=== PATIENT | female | born 2000 | race Caucasian/White ===

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

== ENCOUNTER 2018-01-08 11:30 | Emergency (ER) | payer BC ==
[2018-01-08 12:25] VITALS: BP 112/60
--- NOTE | 2018-01-08 12:34 | UC ---
Throat Pain/Nasal Glen HPI - HPI Summary HPI Summary: sore throat, chilss and fever for 1 day - History of Current Complaint Hx Obtained From: Patient Hx Last Menstrual Period: 12/13/17 ?: No Onset/Duration: Sudden Onset, Lasting Days Severity: Moderate Pain Intensity: 8 Associated Signs & Symptoms: Positive: Dysphagia, Hoarseness, Fever <Piedad Ramirez - Last Filed: 01/08/18 13:15> <Josefina Aguiar - Last Filed: 01/08/18 13:53> - History of Current Complaint Chief Complaint: UCRespiratory Stated Complaint: SWOLLEN THROAT/ST/VOMITING Time Seen by Provider: 01/08/18 12:33 - Allergies/Home Medications Allergies/Adverse Reactions: Allergies Allergy/AdvReac Type Severity Reaction Status Date / Time No Known Allergies Allergy Verified 07/27/17 18:37 PMH/Surg Hx/FS Hx/Imm Hx Previously Healthy: Yes - Surgical History Surgical History: None - Family History Known Family History: Positive: Hypertension - Social History Alcohol Use: Occasionally Substance Use Type: None Smoking Status (MU): Never Smoked Tobacco <Piedad Ramirez - Last Filed: 01/08/18 13:15> Review of Systems Constitutional: Fever, Chills, Fatigue Skin: Negative Eyes: Negative ENT: Sore Throat, Ear Ache Respiratory: Cough Cardiovascular: Negative Gastrointestinal: Negative Genitourinary: Negative Motor: Negative Neurovascular: Negative Musculoskeletal: Negative Neurological: Negative Psychological: Negative Is Patient Immunocompromised?: No All Other Systems Reviewed And Are Negative: Yes <Piedad Ramirez - Last Filed: 01/08/18 13:15> Physical Exam Triage Information Reviewed: Yes Appearance: Well-Nourished, Ill-Appearing, Pain Distress Vital Signs: Initial Vital Signs Temp 100.4 F 01/08/18 12:15 Pulse 102 01/08/18 12:15 Resp 18 01/08/18 12:15 BP 112/60 01/08/18 12:15 Pulse Ox 98 01/08/18 12:15 Vital Signs Reviewed: Yes Eye Exam: Normal ENT: Positive: Pharyngeal erythema, TMs normal, Tonsillar swelling - left tonsil abcess noted, Tonsillar exudate - lef tside Dental Exam: Normal Neck exam: Normal Neck: Positive: Supple, Nontender, Enlarged Nodes @ - left cervical Respiratory Exam: Normal Respiratory: Positive: Chest non-tender, Lungs clear, Normal breath sounds Cardiovascular Exam: Normal Cardiovascular: Positive: No Murmur, Pulses Normal, Tachycardia Abdominal Exam: Normal Abdomen Description: Positive: Nontender, No Organomegaly, Soft Bowel Sounds: Positive: Present Musculoskeletal Exam: Normal Neurological Exam: Normal Psychological Exam: Normal Skin Exam: Normal <Piedad Ramirez - Last Filed: 01/08/18 13:15> Vital Signs: Initial Vital Signs Temp 100.4 F 01/08/18 12:15 Pulse 102 01/08/18 12:15 Resp 18 01/08/18 12:15 BP 112/60 01/08/18 12:15 Pulse Ox 98 01/08/18 12:15 <Josefina Aguiar - Last Filed: 01/08/18 13:53> Throat Pain/Nasal Course/Dx - Course Course Of Treatment: hx obtained, exam performed ,meds reviewed, rapid strep obtained and was invalid, peritonsillar abcess treated with augmentin and steroids, appointment obtained for Dr ruiz, patient preference. advised to report to ER if she devlopes any shortness of breath. - Differential Dx/Diagnosis Differential Diagnosis/HQI/PQRI: Influenza, Laryngitis, Otitis Media, Pharyngitis, URI Provider Diagnoses: peritonsillar abcess, left <Piedad Ramirez - Last Filed: 01/08/18 13:15> Discharge - Sign-Out/Discharge Documenting (check all that apply): Discharge - Billing Disposition and Condition Condition: STABLE Disposition: HOME <Piedad Ramirez - Last Filed: 01/08/18 13:15> - Billing Disposition and Condition Condition: STABLE Disposition: HOME <Josefina Aguiar - Last Filed: 01/08/18 13:53> - Discharge Plan Condition: Stable Disposition: HOME Prescriptions: Amoxicillin/Clavulanate TAB* [Augmentin TAB 875*] 875 mg PO BID #20 tab Ondansetron ODT TAB* [Zofran 4 MG Odt TAB*] 4 mg PO Q8H PRN #12 tab.odt PRN Reason: Nausea predniSONE TAB* [Deltasone TAB*] 40 mg PO DAILY #14 tab Patient Education Materials: Peritonsillar Abscess (ED) Forms: *Work Release Referrals: Siddharth Ruiz MD [Medical Doctor] - No Primary Care Phys,NOPCP [Primary Care Provider] - Additional Instructions: 1. take the medication as prescribed. 2. Salt water gargles multiple times a day 3. if you develop any shortness of breath, wheezing, or other respiratory difficulty please reprot right to ER. I consulted with Dr Ruiz, ENT, he is aware of your conditions, current treatment and you have an appointment scheduled at 4:00 at his office. Attestation Statement User Type: Provider - I was available for consult. This patient was seen by the [facility]. The patient was not presented to, seen by, or examined by me. -Isabel <Josefina Aguiar - Last Filed: 01/08/18 13:53>
[2018-01-08] MEDS ORDERED: Amoxicillin/Clavulanate TAB* 875 MG PO ONE (12:52)
[2018-01-08] MEDS ORDERED: predniSONE TAB* 20 MG PO ONE (12:53)
[2018-01-08] MEDS ORDERED: Ondansetron ODT TAB* 4 MG PO ONE (13:02)
== END 2018-01-08 13:33 | disposition home or self-care (01) ==
LOC: UCCORT 11:30
DX: J36 Peritonsillar abscess (principal)
CPT/HCPCS: 99212; A9270-GY; G0463; J7512

== ENCOUNTER 2019-10-18 17:45 | Emergency (ER) | payer BC ==
[2019-10-18 18:37] VITALS: BP 106/72
--- NOTE | 2019-10-18 18:38 | UC ---
Throat Pain/Nasal [place] HPI - HPI Summary HPI Summary: Patient is a 19-year-old female presenting with nasal congestion and cough 2 weeks. Patient states nasal congestion is worsening. Notes the past 2 days she has had left ear pain and developed muffled hearing. Denies drainage from the ear. Denies shortness of breath and wheezing. Denies nausea and vomiting. Denies fever and chills. Notes normal appetite. Taking Sudafed and DayQuil without much relief. - History of Current Complaint Chief Complaint: UCGeneralIllness Stated Complaint: CONGESTION/COUGH/ LEFT EAR PLUGGED Hx Last Menstrual Period: 12/13/17 Pain Intensity: 0 - Allergies/Home Medications Allergies/Adverse Reactions: Allergies Allergy/AdvReac Type Severity Reaction Status Date / Time No Known Allergies Allergy Verified 10/18/19 18:36 PMH/Surg Hx/FS Hx/Imm Hx - Surgical History Surgical History: Yes Surgery Procedure, Year, and Place: -2016 - Family History Known Family History: Positive: Hypertension - Social History Alcohol Use: Weekly Substance Use Type: None Smoking Status (MU): Never Smoked Tobacco Review of Systems All Other Systems Reviewed And Are Negative: Yes Constitutional: Positive: Negative ENT: Positive: Ear Ache - left, Sinus Congestion Respiratory: Positive: Cough. Negative: Shortness Of Breath Cardiovascular: Positive: Negative Gastrointestinal: Positive: Negative Musculoskeletal: Positive: Negative. Negative: Myalgia Neurological: Negative: Headache Physical Exam - Summary Physical Exam Summary: Vital Signs Reviewed: Yes A+Ox3, no distress, well-appearing Eyes: Conjunctiva Clear ENT: Hearing grossly normal, +nasal congestion, +maxillary sinus tenderness, + erythema and bulging of left TM, uvula midline, no exudate, no erythema Neck: Positive: Supple Respiratory: Positive: No respiratory distress, No accessory muscle use + CTA throughout no w/r Cardiovascular: RRR nl s1, s2 no m/r Musculoskeletal Exam: VILLASEÑOR x 4 without difficulty Neurological: Positive: Alert Psychological: Positive: age appropriate behavior Skin: Positive: no rash, no ecchymosis Vital Signs: Initial Vital Signs Temp 98.5 F 10/18/19 18:31 Pulse 67 10/18/19 18:31 Resp 18 10/18/19 18:31 BP 106/72 10/18/19 18:31 Pulse Ox 98 10/18/19 18:31 Throat Pain/Nasal Course/Dx - Course Course Of Treatment: Discussed AOM and sinusitis with patient. Also discussed acute bronchitis. Treated patient with augmentin and instructed to continue with symptomatic relief. Instructed to follow up with pcp or [facility] if symptoms persist or worsen. Patient voiced understanding and agreed with treatment plan. - Differential Dx/Diagnosis Provider Diagnosis: Acute otitis media with effusion of left ear, Sinusitis, Acute bronchitis Discharge ED - Sign-Out/Discharge Documenting (check all that apply): Patient Departure All imaging exams completed and their final reports reviewed: No Studies - Discharge Plan Condition: Stable Disposition: HOME Prescriptions: Amoxicillin/Clavulanate TAB* [Augmentin TAB 875*] 875 mg PO BID #14 tab Patient Education Materials: Sinusitis (ED), Ear Infection (ED), Acute Bronchitis (ED) Referrals: [facility] [Outside] - If Needed Additional Instructions: Take Augmentin as prescribed. You may continue with sudafed and nasal spray for symptom relief. Increase fluid intake. Follow up with your primary care provider or the [facility] listed below if symptoms worsen or do not resolve. - Billing Disposition and Condition Condition: STABLE Disposition: Home - Attestation Statements Provider Attestation: This patient was not seen by me. I was available for consult. Chart reviewed. TYRONE
[2019-10-18] MEDS ORDERED: Amoxicillin/Clavulanate TAB* 875 MG PO ONE (18:55)
== END 2019-10-18 18:59 | disposition home or self-care (01) ==
LOC: UCCORT 17:45
DX: H65.192 Other acute nonsuppurative otitis media, left ear (principal); J32.9 Chronic sinusitis, unspecified; J20.9 Acute bronchitis, unspecified; M79.10 Myalgia, unspecified site
CPT/HCPCS: 99212; A9270-GY; G0463